=== PATIENT | male | born 1975 | race African-American/Black ===

== ENCOUNTER 2021-11-03 14:47 | Emergency (ER) | payer OTHER ==
[2021-11-03 15:48] VITALS: BP 120/50; PULSE 86; TEMP 97.9; BMI 21.9
[2021-11-03 16:20] LABS: EOS % 0.3 % (0-4.5); HEMATOCRIT 41.9 % (35.4-49); HEMOGLOBIN 14.2 GM/dL (11.7-16.9); LYMPH % 10.1 % (8-40); MCH 26.4 pg (25.7-33.7); MEAN CELL VOLUME 77.5 fl (80-96); MEAN PLT VOLUME 8.4 fl (7.5-11.1); MONO % 5.4 % (3.8-10.2); NEUT % 84.2 % (42.8-82.8); PLATELET COUNT 190 10^3/uL (134-434); RDW 13.8 % (11.9-15.9); WHITE BLOOD COUNT 9.4 K/mm3 (4.0-10.0)
[2021-11-03 16:52] LABS: ALBUMIN 4.2 g/dl (3.4-5.0); BLOOD UREA NITROGEN 14.3 mg/dL (7-18)
[2021-11-03 16:55] LABS: CREATININE 1.1 mg/dL (0.55-1.3)
[2021-11-03 16:56] LABS: TOT PROT 7.4 g/dl (6.4-8.2)
[2021-11-03 16:57] LABS: BILIRUBIN,TOTAL 1.1 mg/dL (0.2-1)
== END 2021-11-03 17:46 | disposition home or self-care (01) ==
LOC: JER 14:47
DX: R55 Syncope and collapse (principal); R11.0 Nausea
CPT/HCPCS: 36415; 80053; 84484; 85025; 93005; 93010; 99283-25